=== PATIENT | male | born 2000 | race Caucasian/White ===

== ENCOUNTER → 2020-02-10 | Outpatient (CLI) | payer OTHER ==
--- NOTE | 2020-02-10 14:47 | MR ---
EXAMINATION TYPE: MR shoulder RT wo con DATE OF EXAM: 02/10/2020 COMPARISON: None HISTORY: Right shoulder pain Multiplanar multiecho imaging of the right shoulder was performed without contrast. The glenoid elio appear intact. Glenohumeral joint appears intact. The subscapularis tendon appears normal. Biceps tendon is intact. The AC joint is intact. There is no significant subacromial impingem ent. There is slight thickening of the supraspinatus tendon near the greater tuberosity of the humeru s. I do not see evidence of a full-thickness tear. There is no retraction. I see no bony destructive process. IMPRESSION: Slight thickening and increased signal in the supraspinatus tendon consistent with tendinitis near th e greater tuberosity. No evidence of a full-thickness tear.
== END | disposition home or self-care (01) ==
LOC: RADMRIMAIN 12:07
DX: M67.813 Other specified disorders of tendon, right shoulder (principal)